=== PATIENT | female | born 1960 | race Caucasian/White ===

== ENCOUNTER 2016-09-01 01:04 | Observation (INO) ==
--- NOTE | 2016-09-01 02:29 | Internal Med History&Physical ---
Date of Encounter: 09/01/16 Time of Encounter: 02:29 Assessment and Plan (1) Chest pain Current visit: Yes Status: Acute patient with no known hx of CAD and prior negative stress test for chest pain comes in today with chest pain in the setting of hypertensive urgency which could be related to the uncontrolled HTN, however she has significant personal and family hx for which it will be reasonable for an ACS r/o, her EKG and troponin were unremarkable, we will cycle troponin, telemonitor, and order nuclear stress test in AM, will check A1c and lipid profile for further risk stratification Qualifiers: Chest pain type: precordial pain Qualified Code(s): R07.2 - Precordial pain (2) Hypertensive urgency Current visit: Yes Status: Acute she says that she has borderline HTN so has been on nightly clonidine for that, she was seen in the ER with SBP>190's which responded to clonidine, we will consider making changes to her BP regimen whilst monitoring to better optimize it (3) Hypothyroidism Current visit: Yes Status: Chronic will continue her home dose of synthroid Qualifiers: Hypothyroidism type: acquired Qualified Code(s): E03.9 - Hypothyroidism, unspecified (4) Anxiety Current visit: Yes Status: Chronic will continue home medications (5) Depression Current visit: Yes Status: Chronic will continue home medications Qualifiers: Depression Type: major depressive disorder Major depression recurrence: recurrent Active/Remission status: in full remission Qualified Code(s): F33.42 - Major depressive disorder, recurrent, in full remission (6) GERD (gastroesophageal reflux disease) Current visit: Yes Status: Chronic will continue PPI Qualifiers: Esophagitis presence: without esophagitis Qualified Code(s): K21.9 - Gastro -esophageal reflux disease without esophagitis (7) CHUYITA (obstructive sleep apnea) Current visit: Yes Status: Suspected she has features concerning for this, she has not yet had a sleep study, she has been advised to have one as outpatient Internal Medicine - H&P: HPI Chief complaint: Chest pain Admitted From: Hospital to Hospital Transfer Plans for Post Hospital Care: Home History of present illness: Ms. Lopez is a 56 year old female with a history of HTN whose management is uncertain was in her usual state of health until last night at around 9:30pm when whilst watching TV at rest she had sudden onset of chest pain. The pain was tight/achy in character, constant in timing. The pain had no relieving or aggravating factors. It lasted till she was seen in the ER of [facility]. It was substernal in location and radiated to her back, it was 9-10/10 in severity. It was associated with dyspnea, nausea without vomiting and a feeling of apprehension. She denies any associated diaphoresis, lightheadedness, or palpitations. At [facility] she had a negative CTA of chest which was ordered for high d-dimer. Her EKG was non ischemic and her troponin was unremarkable. She was transferred here for further workup. She had a stress test years ago that was unremarkable. Past Med Surg Social Fam HX - Past Medical History Source: patient, old records reviewed Medical history: arthritis, GERD, hypertension, thyroid disease, other ( Restless leg syndrome, ?CHUYITA, morbid obesity) Psychiatric history: anxiety ( ), depression - Past Surgical History Surgical History: , cholecystectomy, other (anterior cruciate ligament repair) - Social History Smoking Status: Current every day smoker Packs per day: has smoked since the age of 14, at some point was smoking 2ppd, now 1ppd Smokeless Tobacco Status: No Alcohol use: none Drug use: none Current living situation: Home - Independent, Home, With Family Activity Level: Independent ambulation Additional social history: she has 4 adult children, her 2 girls are twins - Family History Father Hx Family Cardiac Disorders: Yes (Stroke, CABG) Mother Hx Family Cardiac Disorders: Yes (HTN, Stroke) Brother Hx Family Cardiac Disorders: Yes (CABG) - Additional Family History Additional family history: father sided from a stroke, he also had CAD s/p CABG , mother is now in a long term as a result of a stroke, she has HTN and DM, her half brother has CAD s/p ?open heart surgery Internal Medicine - H&P: Meds Levothyroxine [Synthroid] 100 mcg PO DAILY 04/12/15 [History] Ropinirole [Requip] 3 mg PO HS 04/12/15 [History] Sertraline [Zoloft] 100 mg PO DAILY 04/12/15 [History] Tizanidine HCl [Zanaflex] 4 mg PO HS PRN 04/12/15 [History] Famotidine [Pepcid] 40 mg PO DAILY 09/01/16 [History] RX: HYDROcodone/Acet 5/325 mg [[place] 5-325 mg] 1 each PO TID PRN 09/01/16 [ History] RX: cloNIDine HCl [CloNIDine HCl] 0.1 mg PO HS 09/01/16 [History] Zolpidem [Ambien] 5 - 10 mg PO HS PRN 09/01/16 [History] Allergies No Known Allergies Allergy (Verified 09/01/16 03:06) All Systems PM: A 10-system review of systems was performed and is negative for pertinent findings except as documented above in the HPI. - Constitutional Vitals: Vital Signs Temperature 98.2 F 08/31/16 23:04 Pulse Rate 56 08/31/16 23:04 Respiratory Rate 19 08/31/16 23:04 Blood Pressure 197/116 08/31/16 23:04 O2 Sat by Pulse Oximetry 96 08/31/16 23:04 Temperature 98.2 F 08/31/16 23:04 Pulse Rate 71 09/01/16 00:04 Respiratory Rate 11 09/01/16 00:04 Blood Pressure 137/88 09/01/16 00:04 O2 Sat by Pulse Oximetry 94 09/01/16 00:04 GENERAL: Adult female, lying in bed, Alert, not in acute distress, HEENT: NC/AT, EOMI, PERRLA, anicteric sclera, normal conjunctiva, supple but thick neck, clear nares, moist mucous membranes, RESP: Lungs are clear to auscultation bilaterally, good AE bilaterally, No crackles or wheeze CARDIO: Normal hearts sounds; S1 and 2, RRR with no murmurs, no JVD, no ankle edema GI: obese abdomen, soft, full, no tenderness, no organomegaly felt, normal bowel sounds heard MUSCULOSKELETAL: grossly normal movements bilaterally, no deformities noted, no calf tenderness NEUROLOGIC: CN 2-12 intact grossly. No motor/sensory deficit appreciated, PSYCHIATRY: AAO x 3 SKIN: no skin rash or ulcers noted Internal Med - H&P Results - EKG Data -: EKG Interpreted by Myself EKG shows normal: sinus rhythm - Diagnostic Studies Chest x-ray Status: image reviewed by me CT scan - chest Status: image reviewed by me
[2016-09-01] MEDS ORDERED: tiZANidine 4 MG TABLET PO PRN (04:06)
[2016-09-01] MEDS ORDERED: Naloxone 0.4 MG/ML INJ IVP PRN (04:07)
[2016-09-01] MEDS ORDERED: Ondansetron 4 MG/2 ML VIAL IVP PRN (04:07)
[2016-09-01] MEDS ORDERED: Nitroglycerin 0.4 MG TAB.SUBL SL PRN (04:09)
[2016-09-01 05:01] LABS: BUN/Creatinine Ratio 14 (6-26); Blood Urea Nitrogen 12 mg/dL (7-20); Carbon Dioxide 31 mEq/L (19-29); Chloride 99 mEq/L (98-109); Glucose 202 mg/dL (70-99); Osmolality,Calculated 288 (280-300); Potassium 3.8 mEq/L (3.5-4.5); Sodium 136 mEq/L (136-145); eGFR For African Americans > 60 (> 60); eGFR For Non-African Americans > 60 (> 60)
[2016-09-01 05:04] LABS: Chol/HDL Ratio 6.6 (0-4.9); Magnesium 1.7 mg/dL (1.6-2.6); Phosphorous 3.6 mg/dL (2.3-4.7)
[2016-09-01 05:19] LABS: Hemoglobin A1C 8.8 %
[2016-09-01] MEDS: *HR* Heparin 5,000 UNIT/ML VIAL SQ SCH ×3 (05:53→21:47)
[2016-09-01] MEDS ORDERED: Regadenoson 0.4 MG/5 ML SYRINGE IVP ONE (06:06)
[2016-09-01] MEDS: Famotidine 20 MG TABLET PO SCH (10:07)
[2016-09-01] MEDS: Aspirin 81 MG TAB.CHEW PO SCH (10:08)
[2016-09-01] MEDS: *HR* HYDROcodone/Acet 5/325 mg TABLET PO PRN ×2 (10:08→21:54)
[2016-09-01] MEDS ORDERED: Dextrose Gel 15 GM PO PRN ×2 (16:00)
[2016-09-01] MEDS ORDERED: *HR* Dextrose 50 % in Water (Syg) 50 ML SYRINGE IVP PRN (16:00)
[2016-09-01] MEDS ORDERED: D5% in Water 1,000 ML IVC PRN (16:00)
--- NOTE | 2016-09-01 16:07 | Internal Med Progress Note ---
Date of Encounter: 09/01/16 Time of Encounter: 15:50 - Assessment and plan (1) Chest pain Current Visit: Yes Status: Acute Assessment and plan: Patient reports sudden onset chest pain while watching TV at 9:30 PM last night. She said the pain was tight midsternal, radiated through to her back, rated it 9/10. She reports dyspnea, nausea, she denies diaphoresis or vomiting or shortness of breath. She denies palpitations or lightheadedness. She states that nothing made the pain better or worse. She has no prior cardiac history, however due to comorbidities of sleep apnea, hyperlipidemia, smoker, hypertension, and obesity, she is at increased risk for ischemic cardiac event. Troponins were negative 2. CTA was negative for PE or acute process. She does have an enlarged thyroid without lesions. Chest x-ray was negative for acute processes. Echocardiogram showed LVEF 55-60%, mildly dilated left ventricle with grossly normal LV function, overall LVEF appears normal. Mild diastolic dysfunction, atypical septal motion of unclear etiology, dilated right ventricle with normal appearing function. Patient is pain-free at this time. She went for her stress test today and had a nitroglycerin patch on such she was unable to complete her test. She will be a 2 day stress test and will start again tomorrow. Continue telemetry continue to monitor labs History chest pain as needed Qualifiers: Chest pain type: precordial pain Qualified Code(s): R07.2 - Precordial pain (2) Hypertensive urgency Current Visit: Yes Status: Acute Assessment and plan: Patient has been borderline hypertension, takes clonidine nightly for that. The pressure was elevated in the emergency department, he responded to clonidine as well. We will continue to monitor her blood pressure medicine while she is admitted. Is currently well controlled. Continue to monitor (3) Hyperlipidemia Current Visit: Yes Status: Chronic Assessment and plan: Lipids elevated. Patient has been started on Zocor 40 mg by mouth daily. Qualifiers: Hyperlipidemia type: unspecified Qualified Code(s): E78.5 - Hyperlipidemia , unspecified (4) Type 2 diabetes mellitus Current Visit: Yes Status: Acute Assessment and plan: New diagnosis. A1c is 8.8. Accu-Cheks have been elevated since arrival. Diabetic diet Sliding-scale insulin Accu-Cheks before meals at bedtime Patient education throughout rest of stay outreach educator after discharge Glucose monitor, strips, metformin on discharge. Qualifiers: Diabetes mellitus complication status: without complication Diabetes mellitus outpatient case manager insulin use: without fdc use Qualified Code(s): E11.9 - Type 2 diabetes mellitus without complications (5) Hypothyroidism Current Visit: Yes Status: Chronic Assessment and plan: Chronic. Continue home medications. Qualifiers: Hypothyroidism type: acquired Qualified Code(s): E03.9 - Hypothyroidism, unspecified (6) Anxiety Current Visit: Yes Status: Chronic Assessment and plan: Chronic. Continue home medications. (7) Depression Current Visit: Yes Status: Chronic Assessment and plan: Plan as above Qualifiers: Depression Type: major depressive disorder Major depression recurrence: recurrent Active/Remission status: in full remission Qualified Code(s): F33.42 - Major depressive disorder, recurrent, in full remission (8) GERD (gastroesophageal reflux disease) Current Visit: Yes Status: Chronic Assessment and plan: Chronic. Continue PPI. Qualifiers: Esophagitis presence: without esophagitis Qualified Code(s): K21.9 - Gastro -esophageal reflux disease without esophagitis (9) CHUYITA (obstructive sleep apnea) Current Visit: Yes Status: Suspected Assessment and plan: Patient will follow-up with primary care for a sleep study. (10) Morbid obesity with BMI of 45.0-49.9, adult Current Visit: Yes Status: Acute Assessment and plan: Chronic. Lifestyle changes. (11) DVT prophylaxis Current Visit: Yes Status: Acute Assessment and plan: Subcutaneous heparin daily. - Time Spent With Patient less than 15 minutes - Subjective Interval history: Patient was seen and assessed at about 3:50 PM today. Patient was unable to have her stress test today due to having nitro paste on her chest. She will have a 2 day stress starting tomorrow. Patient was initially asking if she could do her stress test outpatient. I discussed with her the fact that due to her increased risk factors that would be beneficial for her to stay and that she would need to sign out AMA if she did not finish her stress test. Patient was agreeable we also discussed her new diabetes diagnosis. I discussed some basic diet and treatment plans, we discussed metformin, Accu-Cheks, and seeing the adaptive physical educator. Patient appeared to be a little overwhelmed, so we will continue to educate slowly prior to discharge. I have since ordered sliding scale insulin coverage and diabetic diet. She denies chest pain at this time. - Constitutional Vitals: Temp Pulse Resp BP Pulse Ox 98.1 F 70 18 135/88 94 09/01/16 15:28 09/01/16 15:28 09/01/16 15:28 09/01/16 15:28 09/01/16 15:28 General appearance: Present: cooperative, A&O X 3, morbidly obese, no acute distress, answers questions appropriately - Head Head exam: Present: normal inspection - Eye Eye exam: Present: normal appearance, conjuntiva pink - ENT ENT exam: Present: mucous membranes moist, normal exam - Neck Neck exam general surgery: Present: normal inspection. Absent: lymphadenopathy , tenderness - Respiratory Respiratory exam: Present: CTAB. Absent: rales, respiratory distress, rhonchi, stridor, wheezes - Cardiovascular Cardiovascular exam: Present: RRR, +S1, +S2. Absent: diastolic murmur, systolic murmur - GI/Abdominal GI/Abdominal exam: Present: distended, normal bowel sounds, soft. Absent: hepatomegaly, tenderness - Extremities Exam Extremities exam: Present: full ROM, normal inspection, warm, radial pulses palpable and symetrical. Absent: pedal edema, tenderness - Neurological Exam Neurological exam: Present: alert, oriented X3. Absent: facial droop, speech deficit - Skin Skin exam: Present: dry, normal color, warm. Absent: rash Internal Medicine: Result - Labs CBC & Chem 7: 09/01/16 04:26 Labs: BMP 09/01/16 04:26 Sodium 136 Potassium 3.8 Chloride 99 Carbon Dioxide 31 H BUN 12 Creatinine 0.87 Glucose 202 H Calcium 9.0 Cardiac Enzymes 09/01/16 09/01/16 Range/Units 04:26 09:55 Troponin I 0.02 0.03 (0-0.03) ng/mL Consult Discharge Plan - Plan Referrals: Benja Oswald MD [Primary Care Provider] -
[2016-09-01] MEDS: Insulin LISPRO 300 UNITS/3 ML VIAL SQ SCH (21:44)
[2016-09-01] MEDS: cloNIDine HCl 0.1 MG TABLET PO SCH (21:47)
[2016-09-02 04:37] LABS: Basophils # 0.1 K/mcL (0.0-0.2); Basophils % 0.8 %; Eosinophils # 0.3 K/mcL (0.0-0.6); Eosinophils % 4.4 %; Hematocrit 40.4 % (35.3-44.9); Hemoglobin 13.6 g/dL (11.5-15.4); Immature Granulocytes % 0.6 % (0-4); Lymphocytes # 2.2 K/mcL (0.6-4.6); Lymphocytes % 27.8 %; Mean Corpuscular HGB Conc 33.7 g/dL (31.6-35.5); Mean Corpuscular Hemoglobin 32.5 pg (28.0-33.3); Mean Corpuscular Volume 96.4 fL (83.0-100.0); Mean Platelet Volume 9.9 fL (9.4-12.4); Monocytes # 0.4 K/mcL (0.0-1.3); Monocytes % 4.5 %; Neutrophils # 4.8 K/mcL (1.6-8.9); Platelet Count 193 K/mcL (140-400); Red Blood Count 4.19 M/mcL (3.82-4.97); Red Cell Distribution Width 13.5 % (11.5-14.5); Segmented Neutrophils % 61.9 %
[2016-09-02 04:57] LABS: BUN/Creatinine Ratio 15 (6-26); Blood Urea Nitrogen 12 mg/dL (7-20); Calcium 8.8 mg/dL (8.6-10.8); Carbon Dioxide 31 mEq/L (19-29); Chloride 98 mEq/L (98-109); Glucose 199 mg/dL (70-99); Osmolality,Calculated 285 (280-300); Potassium 4.2 mEq/L (3.5-4.5); Sodium 135 mEq/L (136-145); eGFR For African Americans > 60 (> 60); eGFR For Non-African Americans > 60 (> 60)
[2016-09-02] MEDS: *HR* Heparin 5,000 UNIT/ML VIAL SQ SCH ×3 (05:11→20:56)
[2016-09-02] MEDS ORDERED: Regadenoson 0.4 MG/5 ML SYRINGE IVP ONE (07:33)
--- NOTE | 2016-09-02 10:25 | Internal Med Progress Note ---
Date of Encounter: 09/02/16 Time of Encounter: 10:15 - Assessment and plan (1) Chest pain Current Visit: Yes Status: Inactive Assessment and plan: Patient denies chest pain today. She has no peripheral edema. Her lungs are clear. She states she has been getting up to go to the bathroom. She denies LIPSCOMB or chest pain with exertion. She is waiting to go to her stress test, today will be day 2. Troponins were negative, CTA negative, chest x-ray negative. Echocardiogram has performed and shows LVEF of 55-60% with mild diastolic dysfunction, atypical septal motion of unclear etiology. Continue motion pictures cartoonist labs Monitor patient condition Consider cardiology consult based on results of stress. Qualifiers: Chest pain type: precordial pain Qualified Code(s): R07.2 - Precordial pain (2) Hypertensive urgency Current Visit: Yes Status: Inactive Assessment and plan: Blood pressure has, for the most part, been well controlled. She has had some higher readings with diastolic remaining less than 90. Systolic has been as high as 160s. Her pulse has been within normal limits. We may need to add medication as currently she only takes the clonidine at bedtime. (3) Hyperlipidemia Current Visit: Yes Status: Chronic Assessment and plan: Patient has been started on Zocor 40 mg by mouth daily. Continue Qualifiers: Hyperlipidemia type: unspecified Qualified Code(s): E78.5 - Hyperlipidemia , unspecified (4) Type 2 diabetes mellitus Current Visit: Yes Status: Acute Assessment and plan: New diagnosis. Accu-Cheks remained hyperglycemic. Continue diabetic diet Sliding-scale insulin Accu-Cheks before meals at bedtime Continue patient education Consult certified lactation educator Prescriptions for glucose monitor, strips, metformin on discharge. Qualifiers: Diabetes mellitus complication status: without complication Diabetes mellitus ocean transportation intermediary insulin use: without shelter use Qualified Code(s): E11.9 - Type 2 diabetes mellitus without complications (5) Hypothyroidism Current Visit: Yes Status: Chronic Assessment and plan: Chronic. Continue medications. Qualifiers: Hypothyroidism type: acquired Qualified Code(s): E03.9 - Hypothyroidism, unspecified (6) Anxiety Current Visit: Yes Status: Chronic Assessment and plan: Chronic continue home medications. (7) Depression Current Visit: Yes Status: Chronic Assessment and plan: Chronic. Continue home medications. Qualifiers: Depression Type: major depressive disorder Major depression recurrence: recurrent Active/Remission status: in full remission Qualified Code(s): F33.42 - Major depressive disorder, recurrent, in full remission (8) GERD (gastroesophageal reflux disease) Current Visit: Yes Status: Chronic Assessment and plan: Chronic. Continue PPI. Qualifiers: Esophagitis presence: without esophagitis Qualified Code(s): K21.9 - Gastro -esophageal reflux disease without esophagitis (9) CHUYITA (obstructive sleep apnea) Current Visit: Yes Status: Suspected Assessment and plan: Patient will follow-up with primary care for a sleep study. (10) Morbid obesity with BMI of 45.0-49.9, adult Current Visit: Yes Status: Acute Assessment and plan: Chronic. Lifestyle changes. (11) DVT prophylaxis Current Visit: Yes Status: Acute Assessment and plan: Subcutaneous heparin daily. - Subjective Interval history: . She was seen and examined this morning at about 10:15 AM. She is resting quietly in her room, watching TV. Patient denies any complaints or pain this morning. She denies chest pain. She has not gone for her stress test yet. Today will be day 2 of 2 day stress. - Constitutional Vitals: Temp Pulse Resp BP Pulse Ox 97.9 F 67 16 162/81 94 09/02/16 07:17 09/02/16 07:17 09/02/16 07:17 09/02/16 07:17 09/02/16 07:17 General appearance: Present: cooperative, A&O X 3, morbidly obese, no acute distress, answers questions appropriately - Head Head exam: Present: normal inspection - Eye Eye exam: Present: normal appearance, conjuntiva pink - ENT ENT exam: Present: mucous membranes moist, normal exam, normal external ear exam - Neck Neck exam general surgery: Present: normal inspection. Absent: lymphadenopathy , tenderness - Respiratory Respiratory exam: Present: CTAB. Absent: rales, respiratory distress, rhonchi, stridor, wheezes - Cardiovascular Cardiovascular exam: Present: RRR, +S1, +S2. Absent: diastolic murmur, systolic murmur - GI/Abdominal GI/Abdominal exam: Present: distended, normal bowel sounds, soft. Absent: tenderness - Extremities Exam Extremities exam: Present: normal capillary refill, warm, radial pulses palpable and symetrical. Absent: pedal edema, tenderness - Neurological Exam Neurological exam: Present: alert, oriented X3, no focal deficits. Absent: facial droop, speech deficit - Skin Skin exam: Present: dry, normal color, warm. Absent: rash Internal Medicine: Result - Labs CBC & Chem 7: 09/02/16 04:06 09/02/16 04:06 Labs: Short CBC 09/02/16 Range/Units 04:06 WBC 7.8 (4.3-11.1) K/mcL Hgb 13.6 (11.5-15.4) g/dL Hct 40.4 (35.3-44.9) % Plt Count 193 (140-400) K/mcL Neutrophils # 4.8 (1.6-8.9) K/mcL BMP 09/02/16 04:06 Sodium 135 L Potassium 4.2 Chloride 98 Carbon Dioxide 31 H BUN 12 Creatinine 0.82 Glucose 199 H Calcium 8.8 Cardiac Enzymes 09/01/16 Range/Units 09:55 Troponin I 0.03 (0-0.03) ng/mL Consult Discharge Plan - Plan Referrals: Benja Oswald MD [Primary Care Provider] -
[2016-09-02] MEDS: Insulin LISPRO 300 UNITS/3 ML VIAL SQ SCH ×5 (12:28→20:27)
[2016-09-02] MEDS: Famotidine 20 MG TABLET PO SCH (15:10)
[2016-09-02] MEDS: Aspirin 81 MG TAB.CHEW PO SCH (15:10)
[2016-09-02] MEDS: *HR* HYDROcodone/Acet 5/325 mg TABLET PO PRN (15:30)
[2016-09-02] MEDS: cloNIDine HCl 0.1 MG TABLET PO SCH (19:57)
[2016-09-03] MEDS: *HR* Heparin 5,000 UNIT/ML VIAL SQ SCH (05:26)
[2016-09-03] MEDS: Insulin LISPRO 300 UNITS/3 ML VIAL SQ SCH ×2 (07:39→12:31)
[2016-09-03] MEDS: Aspirin 81 MG TAB.CHEW PO SCH (11:08)
[2016-09-03] MEDS: Famotidine 20 MG TABLET PO SCH (11:08)
--- NOTE | 2016-09-03 11:43 | Nuclear Medicine Stress Report ---
Regadenoson Nuclear 2 day Name: Fifi Lopez Date of Study: 09/02/2016 Date: 1960 Ht: 66.0 in Medical Record#: [id number] Age: 56 Wt: 286.0 lb Gender: Female Order #: [id number] Location: [facility] Room: [facility] Supervising Provider: Terri Magdaleno CNP Reading Physician: Rain Patterson DO Ordering Physician: Rubia Blanco CNP Primary Care Physician: Benja Oswald MD Stress Technologist: Wanda March, CONRAD,CPFT Data Typist: Horacio Rivera Indications: Chest Pain Impression: Perfusion imaging was negative for ischemia or infarct. Inferior wall and apical artifact. Pharmacologic ECG was negative for ischemia at the level of heart rate achieved. Gated EF = 70%. History: Hypertension Diabetes Hypercholesteremia History of Smoking Stress Test Summary: Stress Test Type: Pharmacologic Regadenoson 0.4mg/5ml given IV Baseline Information: Initial Heart Rate: 67 Blood Pressure: 106/62 Stress Information: Test Terminated Due to (primary): As per protocol Maximum Blood Pressure: 106/74 Maximum Heart Rate: 91 Percent Maximum Heart Rate Achieved: 59 Double Product: [id number] METS Reached: 1 Symptoms: No chest symptoms Nuclear Summary: SPECT myocardial perfusion imaging using [id number] Sestamibi given intravenously was performed at rest and following cardiac stress testing. The resting images were obtained following initial dose of 35.5 mCi. Following stress an additional dose of 34.0 mCi was given at peak exercise or 30 seconds post regadenoson infusion. Medication Given: Time Medication Dose Units Route Findings: Stress Note * Resting ECG demonstrated normal sinus rhythm with nonspecific ST abnormalities. * Pharmacologic stress ECG is negative for ischemia at level of heart rate achieved. * No arrhythmias were noted during stress. * Patient had no chest pain during stress. Hemodynamic responses * Normal hemodynamic responses to pharmacologic stress. Study Quality * Technically challenging study. Gated EF % * Gated EF = 70%. Left Ventricle * The left ventricle is not dilated. TID * No evidence of transient ischemic dilatation. Lung Uptake * There is no evidence of increase lung uptake. NORMALS * Normal wall motion. PERFUSION * There is a mild intensity fixed perfusion defect involving the basal to distal inferior wall. Wall motion is normal. Findings represent artifact. * There is a small sized, mild intensity perfusion defect involving the apex. Wall motion is normal. Findings represent artifact. * Other areas demonstrate normal rest and stress perfusion. Updated by Rain Patterson on 09/03/2016 11:38:37 AM electronically signed on 09/03/2016 11:40:03 AM with status of Final
[2016-09-03 12:18] VITALS: BP 149/80
--- NOTE | 2016-09-03 12:20 | Discharge Summary ---
Date of Encounter: 09/03/16 Time of Encounter: 11:00 - Discharge Diagnosis (1) Chest pain Priority: Primary Status: Acute Comments: Patient denies chest pain again today. She has no peripheral edema lungs are clear. Patient is able to ambulate in the room and hallway without heel E chest pain with exertion. Completed just test today. Negative for ischemia or infarct with a gaited EF of 70%. Troponins have been negative, CTA was negative for PE, chest x-ray was negative. Echocardiogram showed LVEF of 55-60 % with mild diastolic dysfunction, atypical septal motion of unclear etiology. Wall motion normal in stress report. Troponins were negative. EKG showed sinus rhythm with ventricular rate of 78, LA interval of 150, QRS duration of 86, QTC is 436. Qualifiers: Chest pain type: precordial pain Qualified Code(s): R07.2 - Precordial pain (2) Hypertensive urgency Priority: Secondary Status: Resolved Comments: Vital signs within normal limits. Patient has been mildly hypertensive. I have added lisinopril 5 mg daily to her medication regimen. (3) Hyperlipidemia Priority: Secondary Status: Chronic Comments: Patient has been started on Zocor 40 mg by mouth daily. Continue at home. Qualifiers: Hyperlipidemia type: unspecified Qualified Code(s): E78.5 - Hyperlipidemia , unspecified (4) Type 2 diabetes mellitus Priority: Secondary Status: Acute Comments: New diagnosis this admission. Accu-Cheks remained hyperglycemic. I had done some education with the patient. Patient will need to see patient educator. Patient will be started on metformin 500 mg by mouth twice a day. I will also give her prescriptions for glucose monitor, strips, and lancets. Qualifiers: Diabetes mellitus complication status: without complication Diabetes mellitus usp insulin use: without superintendent container terminal use Qualified Code(s): E11.9 - Type 2 diabetes mellitus without complications (5) Hypothyroidism Priority: Secondary Status: Chronic Comments: Chronic. Continue home medications. Qualifiers: Hypothyroidism type: acquired Qualified Code(s): E03.9 - Hypothyroidism, unspecified (6) Anxiety Priority: Secondary Status: Chronic Comments: Chronic. Continue medication. (7) Depression Priority: Secondary Status: Chronic Qualifiers: Depression Type: major depressive disorder Major depression recurrence: recurrent Active/Remission status: in full remission Qualified Code(s): F33.42 - Major depressive disorder, recurrent, in full remission (8) GERD (gastroesophageal reflux disease) Priority: Secondary Status: Chronic Comments: Chronic. Continue PPI at home. Qualifiers: Esophagitis presence: without esophagitis Qualified Code(s): K21.9 - Gastro -esophageal reflux disease without esophagitis (9) CHUYITA (obstructive sleep apnea) Priority: Secondary Status: Suspected Comments: Patient will need to follow-up on an outpatient basis for referral for primary care for sleep study and evaluation for CPAP. (10) Morbid obesity with BMI of 45.0-49.9, adult Priority: Secondary Status: Chronic Comments: Chronic. Lifestyle changes. (11) DVT prophylaxis Priority: Secondary Status: Acute Comments: Patient is ambulatory. Subcutaneous heparin daily. - Discharge Medications Prescriptions: Lisinopril [Zestril] 5 mg PO DAILY #30 tablet metFORMIN [Glucophage] 500 mg PO BIDWM #60 tablet Simvastatin [Zocor] 40 mg PO HS #30 tablet Home Medications: Levothyroxine [Synthroid] 100 mcg PO DAILY 04/12/15 [History] Ropinirole [Requip] 3 mg PO HS 04/12/15 [History] Sertraline [Zoloft] 100 mg PO DAILY 04/12/15 [History] Tizanidine HCl [Zanaflex] 4 mg PO HS PRN 04/12/15 [History] Diclofenac Sodium [Voltaren] 1 appl TP QID 09/01/16 [History] Famotidine [Pepcid] 40 mg PO DAILY 09/01/16 [History] HYDROcodone/Acet 5/325 mg [[place] 5-325 mg] 1 tab PO TID PRN 09/01/16 [History] Ketoconazole Shampoo [Nizoral Shampoo] 1 appl TP AD 09/01/16 [History] Zolpidem [Ambien] 5 - 10 mg PO HS PRN 09/01/16 [History] cloNIDine HCl [CloNIDine HCl] 0.1 mg PO HS 09/01/16 [History] Lisinopril [Zestril] 5 mg PO DAILY #30 tablet 09/03/16 [Rx] Simvastatin [Zocor] 40 mg PO HS #30 tablet 09/03/16 [Rx] metFORMIN [Glucophage] 500 mg PO BIDWM #60 tablet 09/03/16 [Rx] Allergies/Adverse Reactions: Allergies No Known Allergies Allergy (Verified 09/01/16 03:06) Procedures/tests Complete & Pending: Procedures Performed prior 72 hours Category Date Time Status NM will perf SPECT multi [NM] Routine Exams 09/02/16 Taken SP pharm nuclear stress Routine Y 09/02/16 08:15 Completed Date of admission: 09/01/16 02:15 Primary care physician: Benja Oswald MD Consults: 09/01/16 16:00 Consult to Storage Facility Housekeeper [CONS] Routine Comment: Reason for Consult: New diabetes diagnosis Discharging clinician: Rubia Blanco Anticipated date of discharge: 09/03/16 - Patient Status Disposition: Home, Self-Care Condition: Good Functional capacity at discharge: independent ambulation Overall status at discharge: patient is back to baseline - Discharge Instructions Follow Up With: Benja Oswald MD [Primary Care Provider] - Additional Instructions: Please follow up with your primary care physician in the next week to 10 days for a follow up appointment Take your new medications as prescribed. Follow up with Storage Facility Housekeeper Check your blood sugar in the morning when you first wake up before you eat or drink anything, and check it one other time each day, 2 hours after a meal. Record your readings and take to your doctor when you go. Resume your other home medications. Return to the ER if you experience any new or concerning symptoms or if you have any problems. - Diet and Activity Activity: increase activity as tolerated Diet: diabetic diet Hospital course: Ms. Lopez is a 56 year old female with prior medical history of hypertension. Patient presented to the emergency room on September 01 with complaint of sudden onset chest pain. She states onset at 2130 while she was watching TV, at rest. It was midsternal, tight, constant, with radiation to her back. She rated 9- 10/10 in severity. She reports dyspnea, nausea and denies vomiting. No diaphoresis, lightheadedness or palpitations. Patient had a negative CTA which was ordered in response to an elevated d-dimer. Chest x-ray was negative as well. Echocardiogram from prior visit showed LVEF of 55-60% with mild diastolic dysfunction, atypical septal motion of unclear etiology. I did speak with cardiology route salesperson regarding the atypical septal motion. Patient may follow up in the office for this as needed. Patient has denied chest pain since arrival. She has no peripheral edema. Lungs are clear she has no dyspnea on exertion or chest pain with exertion. Stress test was negative for ischemia or infarct and she has a gated EF of greater than 70%. Patient was hypertensive on arrival to the emergency department. She was diagnosed with hypertensive urgency. Since that time her blood pressure has been well controlled, although it remains borderline hypertensive. Her pulses are within normal limits. I have started her on lisinopril 5 mg by mouth daily, which she will continue at home. During this visit, patient was also found to have hyperlipidemia and she has been started on Zocor 40 mg by mouth daily which she will continue at home. He also has a new diagnosis of type 2 diabetes. I have done some education since she has been here. Discussed counting carbohydrates and label reading. She has been on sliding scale insulin here blood sugars have still been elevated. She is going to be sent home with a prescription for metformin 500 mg by mouth twice a day. We have discussed the GI side effects, she is aware and verbalized understanding. She has been sent home with a prescription for a glucometer, test strips, and lancets. She will also receive an outpatient order for appointment rn diabetes educator. Patient will continue her other medications for hypothyroidism, anxiety, and GERD. Family has expressed concern over sleep apnea bedtime. Patient will need to follow up with primary care for order for sleep study and evaluation for CPAP at home. Patient and I have discussed lifestyle modifications and diet modifications for diabetes, hypertension, and obesity. Labs and signs have been within normal limits. Patient is pain free. Patient is ready for discharge. - Time Spent with Patient Total time spent providing and/or coordinating discharge services: Less than 30 minutes - Constitutional Vitals: Temp Pulse Resp BP Pulse Ox 97.9 F 67 16 166/84 93 09/03/16 07:24 09/03/16 07:24 09/03/16 07:24 09/03/16 07:24 09/03/16 07:24 General appearance: Present: cooperative, A&O X 3, morbidly obese, no acute distress, answers questions appropriately - Head Head exam: Present: normal inspection - Eye Eye exam: Present: normal appearance, conjuntiva pink. Absent: nystagmus - ENT ENT exam: Present: mucous membranes moist, normal exam - Neck Neck exam general surgery: Present: normal inspection. Absent: lymphadenopathy , tenderness - Respiratory Respiratory exam: Present: CTAB. Absent: rales, rhonchi, stridor, wheezes - Cardiovascular Cardiovascular exam: Present: RRR, +S1, +S2. Absent: diastolic murmur, systolic murmur - GI/Abdominal GI/Abdominal exam: Present: normal bowel sounds, soft. Absent: hepatomegaly, tenderness - Extremities Exam Extremities exam: Present: normal capillary refill, normal inspection, warm, radial pulses palpable and symetrical. Absent: pedal edema, tenderness - Neurological Exam Neurological exam: Present: alert, oriented X3, no focal deficits. Absent: facial droop, speech deficit - Skin Skin exam: Present: dry, normal color, warm. Absent: rash
[2016-09-03] MEDS: *HR* HYDROcodone/Acet 5/325 mg TABLET PO PRN (12:35)
== END 2016-09-03 14:41 | disposition home or self-care (01) ==
LOC: 3BNU
PROVIDERS: ADMIT Internal Medicine; ATTEND Registered Nurse